=== PATIENT | male | born 1965 | race Caucasian/White ===

== ENCOUNTER 2018-05-08 16:41 | Outpatient (CLI) | payer OTHER ==
[2018-05-09 07:11] LABS: eGFR (Non-African) > 60
== END 2018-05-08 16:42 ==
LOC: LAB 16:41
PROVIDERS: ATTEND Family Medicine
DX: Z00.00 Encounter for general adult medical examination without abnormal findings (principal)
CPT/HCPCS: 80053; 80061

== ENCOUNTER 2018-06-09 08:16 | Day surgery (SDC) | payer OTHER ==
[2018-06-09] MEDS ORDERED: LACTATED RINGERS 500 ML IV.SOLN IV ONE (08:30)
[2018-06-09] MEDS ORDERED: LIDOCAINE HCL/PF 2% 100 MG/5 ML VIAL IJ ONE (08:30)
[2018-06-09] MEDS ORDERED: PROPOFOL 200 MG/20 ML VIAL IV ONE (08:30)
[2018-06-09] MEDS ORDERED: SALINE FLUSH 10 ML DISP.SYRIN IVF ONE (08:30)
--- NOTE | 2018-06-09 13:05 | GI Report ---
REFERRING PHYSICIAN: Dr. Alana Antoine RENDERER: Dinesh Singh MD PROCEDURE MEDICATION: Propofol as per anesthesia. INDICATIONS: This 52-year-old man is referred for his first screening colonoscopy. He denies change in bowel habits. He denies a family history of colorectal cancer. PROCEDURE PERFORMED: Colonoscopy and polypectomy. PROCEDURE: An Olympus video colonoscope was advanced to the rectum. In the rectum, around 15 to 17 cm, the patient has 2 polyps. One is about 1 cm in size and kind of sessile and removed with electrocautery at the end of the procedure. The second one was about 5 mm to 6 mm in size and also sessile and removed with electrocautery. At 25 cm, 2 smaller polyps about 3 mm in size were removed with electrocautery. Patient has a fairly atonic redundant colon. It took some maneuvering particularly to get through the sigmoid. We were able to advance all the way to the cecum. The appendiceal orifice and terminal ileum were normal. On slow withdrawal, the cecum, ascending colon, and transverse colon with no obvious intraluminal lesions noted. The descending colon had redundancy. No obvious intraluminal lesions were noted. Again, in the sigmoid, a total of 4 polyps, 2 were removed at around 25 cm and the 2 larger ones at about 15 to 17 cm. FINDINGS: Four colon polyps removed from the sigmoid. The larger one was over a 1 cm in size. RECOMMENDATIONS: 1. A high-fiber diet. 2. Pending the pathology of the polyps, he needs his colon re-looked at probably in 3 years but no longer than 5 years. 3. Follow up with Dr. Antoine. cc: Dr. Alana MARIE
== END 2018-06-09 08:18 ==
LOC: OPSURG 08:16
PROVIDERS: ATTEND Internal Medicine Gastroenterology
DX: Z12.11 Encounter for screening for malignant neoplasm of colon (principal); K63.5 Polyp of colon; D12.5 Benign neoplasm of sigmoid colon
CPT/HCPCS: 88305; J2001; J2704; J7120; 45385; S1016